=== PATIENT | male | born 1990 | race Caucasian/White ===

== ENCOUNTER 2019-08-01 20:36 | Emergency (ER) | payer SELFPAY ==
[2019-08-01 20:37] VITALS: BP 116/74; PULSE 76; RESP 18; TEMP 36.6; O2SAT 100; BMI 23.5
--- NOTE | 2019-08-01 20:59 | ED.VISSUMM ---
- ER Visit Summary Date of Service: 08/01/19 Chief Complaint: Depression and suicidal ideation History of Present Illness: The patient is a 29 M who presents with depression and suicidal ideation that began today. Patient states it has been raining outside and he is homeless. Patient states he does not want to live outside. Patient states he has been thinking of jumping off of a bridge. Patient admits to increasing suicidal thoughts. Patient has a history of bipolar disorder but does not see a psychiatrist. Patient states he has been compliant with his medications. Physical Examination: Vital signs are stable. Patient is afebrile. Patient is in no acute distress. Oral mucosa is pink and moist. Neck is supple. Trachea is midline. There is no JVD. Heart was regular rate and rhythm. Lungs are clear and equal bilaterally. Abdomen is soft and nontender. Cranial nerves II through XII are intact. There are no focal motor or sensory deficits noted. Patient has a depressed mood and flat affect. Patient has poor eye contact. Patient admits to suicidal ideations with thoughts of jumping off of a bridge. Test Results: CBC and basic metabolic profile were obtained and were within normal limits. Serum alcohol level was normal. Urine tox screen was ordered and is pending. Emergency Department Course and Treatment: [place] slip was placed on the patient. Care of the patient was turned over to the oncoming physician. Crisis will be in to evaluate the patient. Disposition: Pending per crisis Impression: Depression This note was generated with [employer] dictation software. It may contain incorrect words, spelling, and punctuation that were not noted in review of the chart prior to signing ED Disposition - Plan for ED Patient: Referrals: Care Physician,No Primary [Primary Care Provider] -
--- NOTE | 2019-08-01 21:04 | ED.RN ---
pt states I just figured I'd be out in the cold and rain so I might as well just . when asked about his thoughts. pt states he does not have a plan.
[2019-08-01 21:37] VITALS: RESP 16
[2019-08-01 21:49] LABS: Anion Gap 5 (5-15); BUN 15 mg/dL (7-18); BUN/Creat Ratio 13.8 RATIO (10-20); Calcium,Total 8.7 mg/dL (8.5-10.1); Chloride 105 mmol/L (98-107); Creatinine, Serum 1.09 mg/dL (0.70-1.30); EST Glomerular Filtration Rate 84 mL/min (>60); Est Glom Filt Rate - Afr Amer 102 mL/min (>60); Estimated Creatinine Clearance 92.65 ml/min; Glucose 71 mg/dL (74-106); Potassium 3.6 mmol/L (3.5-5.1); Sodium Level 141 mmol/L (136-145)
[2019-08-01 21:50] LABS: Alcohol, Blood (Medical)-Serum < 3.0 mg/dL
[2019-08-01 21:51] LABS: Absolute Lymphocyte Count 2.03 X10^3/uL (0.83-4.51); Absolute Neutrophil Count 4.6 X10^3/uL (2.0-7.7); Basophil# 0.05 X10^3/uL; Basophil% 0.7 % (0-1); Eosinophil# 0.19 X10^3/uL; Eosinophils% 2.5 % (0-5); Hematocrit 44.6 % (40-54); Hemoglobin 14.6 g/dL (13.0-16.5); Lymphocyte # 2.03 X10^3/ul (4.0); Lymphocyte % 27.2 % (19-41); Mean Corp Hgb Conc 32.7 g/dL (32-36); Mean Corpuscular Hgb 30.5 pg (27.0-32.0); Mean Corpuscular Volume 93.1 fL (80-94); Mean Platelet Vol. 9.3 fl (6.2-12.0); Monocyte# 0.54 X10^3/uL; Monocyte% 7.2 % (0-10); NRBC Flagged by Analyzer 0 % (0-5); Neutrophil # 4.64 X10^3/uL (2.7-7.7); Neutrophil % 62.3 % (47-70); Platelet Count 176 K/mm3 (150-450); RBC Distribution Width CV 12.5 % (11.6-14.6); RBC Distribution Width SD 42.8 fl (35.1-43.9); Red Blood Count 4.79 M/mm3 (4.6-6.2); White Blood Count 7.5 K/mm3 (4.4-11.0)
[2019-08-01 22:00] VITALS: RESP 15
[2019-08-01 23:00] VITALS: RESP 15
[2019-08-02] VITALS (10 sets, daily range): BP systolic 121–123; BP diastolic 67–87; PULSE 62–85; RESP 14–17; O2SAT 16–99
--- NOTE | 2019-08-02 00:16 | NURSING ---
CALLED CRISIS AT [phone]
[2019-08-02] MEDS: Acetaminophen 500 MG Tablet 1000 MG PO (02:19)
--- NOTE | 2019-08-02 02:19 | EKG12_ITS ---
Test Reason : [facility] [place] Pressure : / mmHG Vent. Rate : 066 BPM Atrial Rate : 066 BPM P-R Int : 126 ms QRS Dur : 100 ms QT Int : 382 ms P-R-T Axes : 016 094 080 degrees QTc Int : 400 ms Normal sinus rhythm Rightward axis Borderline ECG Confirmed by LUZ FERNANDEZ, WALLACE ([id number]), content editor CAMPBELL SHARP ([id number]) on 08/04/2019 3:19:22 PM Referred By: HARINDER Confirmed By:WALLACE ESCOBAR MD
[2019-08-02] MEDS: Gabapentin 300 MG Capsule 900 MG PO ×2 (02:27→18:38)
[2019-08-02 02:49] LABS: AST(SGOT) 43 U/L (15-37); Alanine Aminotransfer ALT/SGPT 69 U/L (16-61); Albumin, Serum 3.7 g/dL (3.2-5.0); Alkaline Phosphatase 64 U/L (45-117); Bilirubin, Direct 0.16 mg/dL (0.00-0.30); Globulin 3.7 g/dL (2.2-4.2); Protein, Total 7.4 g/dL (6.4-8.2)
[2019-08-02 02:51] LABS: Bacteria 0 SEEN /hpf (None Seen); Mucous, Urine 0 SEEN /hpf (<or=2+); Red Blood Cells-Urine 0 SEEN /hpf (0-5); White Blood Cells 0 SEEN /hpf (0-5)
[2019-08-02 03:02] LABS: Color, Urine Yellow (Yellow); Glucose, Dipstick Normal (Normal); Ketone-Dipstick Negative (Negative); Leukocyte Esterase-Dipstick 25 /ul (Negative); Nitrite-Dipstick Negative (Negative); Occult Blood-Urine Negative /ul (Negative); Protein-Dipstick Negative (Negative); Urine Bilirubin Dipstick Negative (Negative); Urine Clarity Sl. Cloudy (Clear); Urine Urobilinogen 1 mg/dl (Normal); Urine pH 6.5 (5.0 - 8.0)
[2019-08-02 03:08] LABS: Amorphous Sediment 2+; Squamous Epithelial Cells - UA 0-5 SEEN /hpf (0-5)
[2019-08-02 03:14] LABS: Vista UDS pH Range 6
[2019-08-02 03:20] LABS: Amphetamine Urine VISTA POSITIVE (<1000 ng/mL); Barbiturate Urine VISTA NEGATIVE (< 200 ng/mL); Benzodiazepine Urine VISTA NEGATIVE (< 200 ng/mL); Cocaine Urine VISTA NEGATIVE (< 300 ng/mL); Ecstacy Urine VISTA NEGATIVE (< 500 ng/mL); Methadone Urine VISTA NEGATIVE (< 300 ng/mL); PCP Urine VISTA NEGATIVE (< 25 ng/mL); THC Urine VISTA NEGATIVE (< 50 ng/mL)
--- NOTE | 2019-08-02 03:40 | NURSING ---
ACCEPTED TO [facility] BUT STILL WAITING ON A BED. CRISIS SAID BED SHOULD BE AVAILABLE LATER TODAY. CRISIS WILL ALSO SET UP TRANSPORT ONCE BED IS READY.
--- NOTE | 2019-08-02 09:05 | ED.RN ---
PT REFUSING EKG. HAS REFUSED TO [employer] STAFF AND TO DAY SHIFT STAFF.DR FINNEGAN AWARE. STATESS NOT FORCING PT FOR AN UNNECESSARY TEST
--- NOTE | 2019-08-02 09:23 | NURSING ---
NO OLD EKGS
--- NOTE | 2019-08-02 09:33 | NURSING ---
FAXED EKG TO [facility]
--- NOTE | 2019-08-02 09:46 | ED.RN ---
PT STATES I HAVE INSURANCE. BARBY FROM REGISTRATION RAN PT INFORMATION. PT INELIGIBLE . PT INFORMED OF THIS. PT STATES I DON'T CARE, I AM NOT GOING ANYWHERE EXCEPT A [facility] OR [facility]. THIS RN ACKNOWLEDGED PT FRUSTRATION BUT TOLD PT I COULD NOT CHANGE THE PINK SLIP AT THIS TIME. PT STATES I WILL JYOTI YOU ALL IF I AM SENT ANYWHERE THAT I DON'T WANT TO GO
--- NOTE | 2019-08-02 11:16 | ED.RN ---
PT GIVEN MULTIPLE SNACKS. REFUSES VITAL SIGNS AT THIS TIME BUT TALKING WITH THIS RN. COOPERATIVE OTHER THEN THAT. INTERMITTENTLY SLEEPING. SITTER AT BEDSIDE
--- NOTE | 2019-08-02 11:54 | ED.RN ---
PT GIVEN LUNCH TRAY IN EXCHANGE FOR ALLOWING THIS RN TO OBTAIN VITAL SIGNS..
--- NOTE | 2019-08-02 16:53 | NURSING ---
ACCEPTED AT [facility]. WAITING ON BED. CRISIS WILL CALL FOR SQUAD
--- NOTE | 2019-08-02 20:47 | ED.RN ---
pt making threats of harming staff [facility], ambulance and [facility] staff. Pt cooperates and gets on transports cot. still yelling. multiple PD at bedside. [place] made aware of patients threats and behaviors.
== END 2019-08-02 20:48 ==
PROVIDERS: Emergency Medicine; Emergency Provider Emergency Medicine
DX: F32.9 Major depressive disorder, single episode, unspecified (principal); R45.851 Suicidal ideations; F31.9 Bipolar disorder, unspecified; Z59.0 Homelessness; F17.200 Nicotine dependence, unspecified, uncomplicated
CPT/HCPCS: 80048; 80076; 80307; 80320; 81001; 85025; 93005; 99285; G0480